=== PATIENT | male | born 1950 | race Two or more races ===

== ENCOUNTER 2024-09-16 14:59 | Emergency (ER) | payer MEDICARE, SELFPAY ==
[2024-09-16 15:03] VITALS: BP 127/78; PULSE 85; RESP 17; TEMP 36.8; O2SAT 96
--- NOTE | 2024-09-16 15:25 | PD.EDADULT ---
ED General RME/HPI General Chief complaint: Dizziness Stated complaint: DIZZINESS Time Seen by Provider: 09/16/24 15:08 Arrival date/time: 09/16/24 14:59 Limitations: no limitations RME / HPI RME / HPI narrative: DR. BARRERA MAIN ED EVALUATION: 73 year old male presents to the Emergency Department [facility] with complaint of palpitations; at home his heart rate was high in the 160's. But when EMS arrived on scene, heart rate was back to normal. No other complaints at this time. Blood glucose 98 per EMS. PMHx: Left bundle branch block, hyperlipidemia, and hypertension. Social Hx: No tobacco, alcohol, or substance use. Related Data Allergies Allergy/AdvReac Type Severity Reaction Status Date / Time No Known Allergies Allergy Verified 09/16/24 23:29 Review of Systems Review of Systems Systems Reviewed: All systems reviewed, normal except as documented Past Medical History Social History SMOKING STATUS: Never smoker SUBSTANCE USE: does not use ALCOHOL: Never ED Exam General Limitations: Present no limitations General appearance: Present alert and in no apparent distress Head Head exam: Present atraumatic and normocephalic Eye Eye exam: Present normal appearance, PERRL and EOMI ENT ENT exam: Present normal exam, normal oropharynx and mucous membranes moist Neck Neck exam: Present normal inspection, full ROM and trachea midline Chest Chest inspection: Present normal inspection and symmetric chest wall rise Respiratory Respiratory exam: Present normal lung sounds bilaterally Cardiovascular Cardiovascular exam: Present regular rate, normal rhythm and normal heart sounds Abdominal Exam Abdominal exam: Present soft and normal bowel sounds Extremities Exam Extremities exam: Present normal inspection and full ROM Back Exam Back exam: Present normal inspection and full ROM Neurological Exam Neurological exam: Present alert, oriented X3 and CN II-XII intact Psychiatric Psychiatric exam: Present normal affect and normal mood Skin Skin exam: Present warm, dry, intact and normal color Course Quality Measures none Orders Category Date Time Status 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 STAT Care 09/16/24 15:53 Completed Continuous Pulse Oximetry ONCE Care 09/16/24 15:53 Completed EKG (ED ONLY) *Do not use* NOW Care 09/16/24 15:53 Completed EKG (ED Only) Stat Exams 09/16/24 15:53 Draft XR chest 1V portable Stat Exams 09/16/24 15:53 Completed B-Type Natriuretic Peptide Stat Lab 09/16/24 16:13 Completed CBC Stat Lab 09/16/24 16:13 Completed Comprehensive Metabolic Panel Stat Lab 09/16/24 16:13 Completed Lipase Stat Lab 09/16/24 16:13 Completed Magnesium Stat Lab 09/16/24 16:13 Completed Troponin I Stat Lab 09/16/24 16:13 Completed Vital Signs Vital signs: Vital Signs Temperature 98.2 F 09/16/24 15:03 Pulse Rate 85 09/16/24 15:03 Respiratory Rate 17 09/16/24 15:03 Blood Pressure 127/78 09/16/24 15:03 Pulse Oximetry (%) 96 09/16/24 15:03 Oxygen Delivery Method Room Air 09/16/24 15:03 Discharge Plan Plan Patient Disposition: HOME (Self Care) Discharge Disposition comment: Follow-up with your fitter/welder in 4 to 5 days Patient condition on transfer: Stable Prescriptions/Referrals Referrals: Hansel Whitfield FNP [Primary Care Provider] - In 1 week Problem List Clinical Impression: Heart palpitations Patient/Caregiver Discharge Instructions Discharge Activity: activity as tolerated Print Language: Comoran Stand Alone Forms: Stephanie Award Info., Patient Portal Info Letter MDM Narrative [facility] hospital course: I, Rosalinda Hubbard, nora scribing for and in the presence of Dr. Barrera. Etiology of his non-sustained tachycardia remains unclear. Metabolic causes were ruled out. FU with fitter/welder. Return precautions were discussed. Clinical Information Provided by EMS [facility] Meds/Rx Considered, not Ordered None Labs/Rad/Tests considered, not Ordered None Chronic Illness/Social Conditions Add or document further as needed: Left bundle branch block, hyperlipidemia, and hypertension. EKG EKG Interpretation narrative: My interpretation: EKG performed at 1600 hours, sinus rhythm, rate 72, left bundle branch block Imaging Radiology reports / interpretation(s): Procedure(s): XR chest 1V portable Accession Number(s): [id number] cc: Hansel Whitfield; Matthias Barrera MD; Singh Oliveira MD~ Examination: AP chest single view TECHNIQUE: AP portable upright chest single view Date and time: September 16, 2024, 1635 hours INDICATIONS: Shortness of breath today. FINDINGS: Suspicious for early pneumonia in the left lower lung zone Normal heart size No pulmonary edema Mild osteopenia IMPRESSION: Suspicious for early pneumonia in the left lower lung zone Dictated By: Singh Oliveira MD Diagnosis Differential diagnosis: SVT, sinus tachycardia, anxiety
--- NOTE | 2024-09-16 15:53 | XR_ITS ---
Examination: AP chest single view TECHNIQUE: AP portable upright chest single view Date and time: September 16, 2024, 1635 hours INDICATIONS: Shortness of breath today. FINDINGS: Suspicious for early pneumonia in the left lower lung zone Normal heart size No pulmonary edema Mild osteopenia IMPRESSION: Suspicious for early pneumonia in the left lower lung zone
--- NOTE | 2024-09-16 15:53 | EKG_ITS ---
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
[2024-09-16 16:03] VITALS: PULSE 71; BMI 31.2
[2024-09-16 16:23] VITALS: BP 115/72; PULSE 78; RESP 16; TEMP 37.1; O2SAT 95
[2024-09-16 16:27] LABS: Basophils # (Auto) 0.1 Thou/mm3 (0.0-0.2); Basophils % (Auto) 1 % (0-2.5); Eosinophils # (Auto) 0.5 Thou/mm3 (0.0-0.5); Eosinophils % (Auto) 6 % (0-10); Hemoglobin 14.3 g/dL (13.5-16.0); Immature Granulocytes % (Auto) 0 % (0-0); Immature Granulocytes Auto 0.01 Thou/mm3 (0.00-0.00); Lymphocytes # (Auto) 1.6 Thou/mm3 (1.0-4.8); Lymphocytes % (Auto) 20 % (10-50); Mean Corpuscular HGB Conc 35.8 g/dl (31.0-37.0); Mean Corpuscular Hemoglobin 30.6 pg (25.0-35.0); Mean Corpuscular Volume 86 fL (80-100); Monocytes # (Auto) 0.8 Thou/mm3 (0.0-0.8); Monocytes % (Auto) 10 % (0-12); Neutrophils # (Auto) 4.9 Thou/mm3 (1.8-7.7); Neutrophils % (Auto) 63 % (37-80); Nucleated Red Blood Cell % 0 /100 WBC (0); Platelet Count 212 Thou/mm3 (140-440); RDW Standard Deviation 38.7 fL (35.1-43.9); Red Blood Count 4.68 Miln/mm3 (4.50-5.90); White Blood Count 7.7 Thou/mm3 (3.8-10.6)
[2024-09-16 16:30] VITALS: PULSE 72; RESP 18; O2SAT 95
[2024-09-16 16:45] LABS: Alanine Aminotransferase 15 U/L (10-49); Albumin, Serum 4.1 gm/dL (3.4-4.8); Albumin/Globulin Ratio 1.6 (1.2-2.2); Alkaline Phosphatase 36 U/L (46-116); Anion Gap 10 (7-16); Aspartate Amino Transferase 22 U/L (0-34); B-Type Natriuretic Peptide 28 pg/mL (0-100); BUN/Creatinine Ratio 15 Ratio (12-20); Bilirubin,Total 0.9 mg/dL (0.3-1.2); Blood Urea Nitrogen 19 mg/dL (9-23); Calcium 9.6 mg/dL (8.3-10.6); Calcium (Corrected) 9.6 mg/dL (8.5-10.1); Carbon Dioxide 22.9 mMol/L (20.0-31.0); Chloride 109 mMol/L (98-107); Creatinine (Component) 1.3 mg/dL (0.6-1.3); Estimated Creatinine Clearance 65.1 mL/min (>60); Globulin 2.5 gm/dL (2.3-3.5); Glucose 90 mg/dL (74-106); Lipase 40 U/L (12-53); Magnesium 2.2 mg/dL (1.6-2.6); Osmolality,Calculated 285 (275-295); Potassium 4.2 mMol/L (3.4-5.1); Sodium 142 mMol/L (136-145); Total Protein 6.6 gm/dL (5.7-8.2); Troponin I < 0.020 ng/mL (0.0-0.045); eGFR 58 See Note
[2024-09-16 18:17] VITALS: BP 120/68; PULSE 83; RESP 20; TEMP 37.1; O2SAT 98
== END 2024-09-16 18:56 | disposition home or self-care (01) ==
PROVIDERS: Emergency Provider Emergency Medicine; PCP Nurse Practitioner Family
DX: R00.2 Palpitations (principal); E78.5 Hyperlipidemia, unspecified; I10 Essential (primary) hypertension; I44.7 Left bundle-branch block, unspecified; I44.0 Atrioventricular block, first degree
CPT/HCPCS: 36415; 71045; 80053; 83690; 83735; 83880; 84484; 85025; 93005; 99283